=== PATIENT | female | born 1965 | race Caucasian/White ===

== ENCOUNTER → 2023-08-23 09:05 | Outpatient (REF) | payer BC, SELFPAY | LOC: RAD 09:05 | PROVIDERS: ATTENDING PHYSICIAN Internal Medicine Hematology & Oncology; FAMILY PHYSICIAN Family Medicine | DX: C79.51 Secondary malignant neoplasm of bone (principal); C78.7 Secondary malignant neoplasm of liver and intrahepatic bile duct | CPT/HCPCS: 71260; 74177; Q9967 ==

== ENCOUNTER → 2023-11-18 10:37 | Outpatient (REF) | payer BC, SELFPAY | LOC: HWWDC 10:37 | PROVIDERS: ATTENDING PHYSICIAN Nurse Practitioner Adult Health; FAMILY PHYSICIAN Nurse Practitioner Family | DX: Z12.31 Encounter for screening mammogram for malignant neoplasm of breast (principal) | CPT/HCPCS: 77063; 77067 ==

== ENCOUNTER → 2024-01-03 14:59 | Outpatient (REF) | payer BC, SELFPAY ==
[2024-01-03 16:51] LABS: ALT (SGPT) 31 U/L (0-35); AST (SGOT) 34 U/L (14-36); Alkaline Phosphatase 100 U/L (38-126); Direct Bilirubin 0.1 mg/dl (0.0-0.4); Total Bilirubin 0.5 mg/dl (0.2-1.3); Total Protein 7.1 g/dl (6.3-8.2)
[2024-01-05 17:49] LABS: CA 27-29 28.5 U/mL (<=39.0)
== END ==
LOC: REG 14:59
PROVIDERS: ATTENDING PHYSICIAN Internal Medicine Hematology & Oncology
DX: C79.51 Secondary malignant neoplasm of bone (principal); C78.7 Secondary malignant neoplasm of liver and intrahepatic bile duct
CPT/HCPCS: 36415; 80076; 86300

== ENCOUNTER → 2024-09-06 07:23 | Outpatient (REF) | payer BC, SELFPAY | LOC: RAD 07:23 | PROVIDERS: ATTENDING PHYSICIAN Nurse Practitioner Adult Health; FAMILY PHYSICIAN Family Medicine | DX: C79.51 Secondary malignant neoplasm of bone (principal); C78.7 Secondary malignant neoplasm of liver and intrahepatic bile duct; C50.412 Malignant neoplasm of upper-outer quadrant of left female breast | CPT/HCPCS: 70470; Q9967 ==

== ENCOUNTER → 2024-11-18 13:29 | Outpatient (REF) | payer BC, SELFPAY | LOC: WDC 13:29 | PROVIDERS: ATTENDING PHYSICIAN Nurse Practitioner Primary Care; FAMILY PHYSICIAN Nurse Practitioner Family | DX: Z12.31 Encounter for screening mammogram for malignant neoplasm of breast (principal) | CPT/HCPCS: 77063; 77067 ==